=== PATIENT | male | born 1990 | race Caucasian/White ===

== ENCOUNTER 2016-08-18 05:48 | Emergency (ER) | payer OTHER ==
[~2016-08-18] VITALS: Ht 175.3 cm; Wt 62.2 kg
[~2016-08-18 05:48] MED LIST: CLINDAMYCIN HC300 MG PO; LIDOCAINE20 MG/1 M5 PO; MOBIC7.5 MG PO; MOTRIN600 MG PO; MOTRIN800 MG PO; MULTIVITAMIN1 EAC2 PO; NOHOMEMEDS; PERCOCET 5/31 TABLET PO; SKELAXIN800 MG PO; ULTRACET1 TABLET PO; ULTRAM50 MG PO
[2016-08-18 06:23] LABS: CREATININE 0.9 mg/dL (0.6-1.3); POTASSIUM 3.6 mEq/L (3.7-5.4)
[2016-08-18 06:25] LABS: CARBON DIOXIDE (BICARBONATE) 22.7 MEQ/L (20-31)
[2016-08-18 06:30] LABS: HEMATOCRIT 44.7 % (38.0-50.0); MCH 30.5 PG (29.0-34.0); MCHC 34.7 G/DL (30.0-36.0); MCV 87.8 FL (86-99); MEAN PLAT.VOLUME 11.9 uM^3 (9.0-12.4); PLATELET COUNT 205 K/uL (156-360); RBC DIS.WIDTH-SD 41.8 % (39-53); RED BLOOD COUNT 5.09 M/uL (4.00-5.50); WHITE BLOOD COUNT 9.4 K/uL (4.1-10.2)
[2016-08-18 06:45] LABS: CHLORIDE 102 mEq/L (99-109); POTASSIUM 4.6 mEq/L (3.7-5.4); SODIUM 138 mEq/L (136-147)
[2016-08-18 06:46] LABS: MAGNESIUM 2.6 mg/dL (1.3-2.7)
[2016-08-18 06:48] LABS: GLUCOSE 93 mg/dL (70-99)
[2016-08-18 06:49] LABS: ANION GAP 15 MEQ/L (2-14)
[2016-08-18 06:50] LABS: TOTAL BILIRUBIN 0.4 mg/dL (0.0-1.0)
[2016-08-18 06:51] LABS: ALKALINE PHOSPHATASE 61 IU/L (3-129)
[2016-08-18 06:52] LABS: GFR ESTIMATE (CALCULATED) > 59 mL/min/
[2016-08-18 06:53] LABS: DIRECT BILIRUBIN 0.2 mg/dL (0.0-0.3); UREA NITROGEN (BUN) 15 mg/dL (9-23)
[2016-08-18 06:55] LABS: LIPASE 26 U/L (1.0-51.0)
[2016-08-18 07:00] LABS: INTER. NORMALIZED RATIO 1.1; PROTHROMBIN TIME 10.7 (9.2-11.2); PTT 29.5 (25-32)
[2016-08-18 07:01] LABS: TROP-I INTERPRETATION NEGATIVE; TROPONIN-I < 0.01 ng/mL (0.0-0.30)
[2016-08-18 07:14] LABS: ADD MIUA? YES; BILIRUBIN NEGATIVE; BLOOD SMALL; COLOR YELLOW ((YELLOW)); GLUCOSE (STRIP) NEGATIVE; KETONES NEGATIVE; LEUKOCYTES NEGATIVE; NITRITE NEGATIVE; PROTEIN (STRIP) 30; SPECIFIC GRAVITY 1.008 (1.000-1.030); UROBILINOGEN 0.2 MG/DL (0.2-1.0)
[2016-08-18 07:19] LABS: D-DIMER ELISA < 0.15 mg/L FEU (< 0.57)
[2016-08-18 07:22] LABS: BACTERIA NONE SEEN /HPF; EPITHELIAL CELLS NONE SEEN /HPF; MUCUS TRACE /LPF; RED BLOOD CELLS 15-20 /HPF (0-5); UCUL ADDED? NO; WHITE BLOOD CELLS 0-5 /HPF (0-5)
[2016-08-18 07:39] VITALS: BP 102/55
== END 2016-08-18 07:52 | disposition home or self-care (01) ==
LOC: EME 05:48
PROVIDERS: Emergency Medicine
DX: R07.89 Other chest pain (principal); R06.4 Hyperventilation; F43.9 Reaction to severe stress, unspecified; Z87.891 Personal history of nicotine dependence; Z88.1 Allergy status to other antibiotic agents; Z88.0 Allergy status to penicillin; Z87.442 Personal history of urinary calculi
CPT/HCPCS: 71020; 80047; 80048; 80076; 81003; 82803; 83690; 83735; 84100; 84484; 85027; 85379; 85610; 85730; 93005; 99281; 99285; J1885; J7030

== ENCOUNTER 2016-08-24 21:10 | Emergency (ER) | payer OTHER ==
[~2016-08-24] VITALS: Ht 177.8 cm; Wt 65.5 kg
[2016-08-24 22:02] LABS: HEMATOCRIT 39.1 % (38.0-50.0); MCH 30.6 PG (29.0-34.0); MCV 87.5 FL (86-99); MEAN PLAT.VOLUME 11.3 uM^3 (9.0-12.4); PLATELET COUNT 236 K/uL (156-360); RBC DIS.WIDTH-SD 41.5 % (39-53); RED BLOOD COUNT 4.47 M/uL (4.00-5.50); WHITE BLOOD COUNT 10.7 K/uL (4.1-10.2)
[2016-08-24 22:11] LABS: CHLORIDE 105 mEq/L (99-109); POTASSIUM 3.8 mEq/L (3.7-5.4); SODIUM 140 mEq/L (136-147)
[2016-08-24 22:13] LABS: GLUCOSE 108 mg/dL (70-99)
[2016-08-24 22:14] LABS: ANION GAP 13 MEQ/L (2-14)
[2016-08-24 22:16] LABS: GFR ESTIMATE (CALCULATED) > 59 mL/min/
[2016-08-24 22:17] LABS: UREA NITROGEN (BUN) 17 mg/dL (9-23)
[2016-08-24 22:43] LABS: ADD MIUA? YES; BILIRUBIN NEGATIVE; BLOOD LARGE; COLOR YELLOW ((YELLOW)); GLUCOSE (STRIP) NEGATIVE; KETONES 20; LEUKOCYTES NEGATIVE; NITRITE NEGATIVE; PROTEIN (STRIP) 30; SPECIFIC GRAVITY 1.025 (1.000-1.030); UROBILINOGEN 0.2 MG/DL (0.2-1.0)
[2016-08-24 22:46] LABS: BACTERIA NONE SEEN /HPF; EPITHELIAL CELLS RARE /HPF; MUCUS 2+ /LPF; RED BLOOD CELLS TNTC /HPF (0-5); UCUL ADDED? NO; WHITE BLOOD CELLS 0-5 /HPF (0-5)
[2016-08-25] MEDS ORDERED: FLOMAX0.4 MG PO (00:04)
[2016-08-25] MEDS ORDERED: NORCO 5/3251 TABLET PO (00:04)
[2016-08-25] MEDS ORDERED: ZOFRAN ODT8 MG PO (00:04)
[2016-08-25 00:43] VITALS: BP 115/66
== END 2016-08-25 00:43 | disposition home or self-care (01) ==
LOC: EME 21:10
PROVIDERS: Physician Assistant
DX: N20.0 Calculus of kidney (principal); Z87.442 Personal history of urinary calculi; Z87.891 Personal history of nicotine dependence
CPT/HCPCS: 74176; 80048; 81003; 85027; 99281; 99284; J1885; J2405; J7030

== ENCOUNTER 2016-08-30 10:57 | Emergency (ER) | payer OTHER ==
[~2016-08-30] VITALS: Ht 175.3 cm; Wt 66.3 kg
[~2016-08-30 10:57] MED LIST changes: +FLOMAX0.4 MG PO; +NORCO 5/3251 TABLET PO; +ZOFRAN ODT8 MG PO
[2016-08-30 12:12] LABS: HEMATOCRIT 43.1 % (38.0-50.0); MCH 30.3 PG (29.0-34.0); MCHC 33.6 G/DL (30.0-36.0); MEAN PLAT.VOLUME 11.1 uM^3 (9.0-12.4); PLATELET COUNT 246 K/uL (156-360); RBC DIS.WIDTH-CV 13.2 % (11.8-14.6); RBC DIS.WIDTH-SD 43.5 % (39-53); RED BLOOD COUNT 4.79 M/uL (4.00-5.50); WHITE BLOOD COUNT 9.6 K/uL (4.1-10.2)
[2016-08-30 12:41] LABS: ANION GAP 7 MEQ/L (2-14); CHLORIDE 104 MEQ/L (99-109); POTASSIUM 4.5 MEQ/L (3.7-5.4); SAMPLE HEMOLYSIS CHECK 0; SAMPLE ICTERIC CHECK 0; SAMPLE LIPEMIA CHECK 0; SODIUM 138 MEQ/L (136-147)
[2016-08-30 12:46] LABS: GFR ESTIMATE (CALCULATED) > 59 mL/min/; GLUCOSE 98 mg/dL (70-99); UREA NITROGEN (BUN) 18 mg/dL (9-23)
[2016-08-30 14:13] LABS: ADD MIUA? YES; BILIRUBIN NEGATIVE; BLOOD LARGE; COLOR YELLOW ((YELLOW)); GLUCOSE (STRIP) NEGATIVE; KETONES NEGATIVE; LEUKOCYTES NEGATIVE; NITRITE NEGATIVE; PROTEIN (STRIP) NEGATIVE; SPECIFIC GRAVITY 1.019 (1.000-1.030); UROBILINOGEN 0.2 MG/DL (0.2-1.0)
[2016-08-30 14:19] LABS: BACTERIA NONE SEEN /HPF; EPITHELIAL CELLS RARE /HPF; HYALINE CASTS 0-5 /LPF; MUCUS 1+ /LPF; RED BLOOD CELLS 40-50 /HPF (0-5); UCUL ADDED? NO; WHITE BLOOD CELLS 0-5 /HPF (0-5)
[2016-08-30 14:44] VITALS: BP 101/66
[2016-08-30] MEDS ORDERED: PERCOCET 5/31 TABLET PO (14:45)
== END 2016-08-30 14:57 | disposition home or self-care (01) ==
LOC: EME 10:57
PROVIDERS: Physician Assistant
DX: N23 Unspecified renal colic (principal); Z87.442 Personal history of urinary calculi; Z87.440 Personal history of urinary (tract) infections; Z88.1 Allergy status to other antibiotic agents; Z87.891 Personal history of nicotine dependence
CPT/HCPCS: 80048; 81003; 85027; 99281; 99284; J1885

== ENCOUNTER 2016-09-06 03:00 | Emergency (ER) | payer OTHER ==
[~2016-09-06] VITALS: Ht 175.3 cm; Wt 67.7 kg
[2016-09-06 03:31] LABS: ADD MIUA? YES; BILIRUBIN NEGATIVE; BLOOD LARGE; COLOR YELLOW ((YELLOW)); GLUCOSE (STRIP) NEGATIVE; KETONES NEGATIVE; LEUKOCYTES TRACE; NITRITE NEGATIVE; PROTEIN (STRIP) 30; SPECIFIC GRAVITY 1.021 (1.000-1.030); UROBILINOGEN 0.2 MG/DL (0.2-1.0)
[2016-09-06 03:36] LABS: BACTERIA NONE SEEN /HPF; EPITHELIAL CELLS NONE SEEN /HPF; HYALINE CASTS 0-5 /LPF; MUCUS 3+ /LPF; RED BLOOD CELLS 20-30 /HPF (0-5); UCUL ADDED? NO
[2016-09-06] MEDS ORDERED: ZOFRAN4 MG PO (03:44)
[2016-09-06] MEDS ORDERED: FLOMAX0.4 MG PO (03:44)
[2016-09-06] MEDS ORDERED: CIPRO500 MG PO (03:44)
[2016-09-06] MEDS ORDERED: PERCOCET 5/31 TABLET PO (03:44)
[2016-09-06 04:42] VITALS: BP 108/56
== END 2016-09-06 04:44 | disposition home or self-care (01) ==
LOC: EME 03:00
DX: N20.0 Calculus of kidney (principal); R11.0 Nausea; Z88.0 Allergy status to penicillin; Z87.891 Personal history of nicotine dependence
CPT/HCPCS: 80053; 81003; 85027; 87086; 99281; 99284; J1885